=== PATIENT | male | born 1955 | race Caucasian/White ===

== ENCOUNTER 2022-06-19 10:43 | Emergency (ER) | payer OTHER ==
[2022-06-19 11:29] LABS: BUN/CREATININE RATIO 21 (0-10)
[2022-06-19 11:34] LABS: HEMOGLOBIN 13.6 gm/dl (14.0-17.5); RED BLOOD COUNT 4.61 M/UL (4.20-5.50); WHITE BLOOD COUNT 6.5 K/UL (4.5-11.0)
== END 2022-06-19 15:05 | disposition home or self-care (01) ==
LOC: ER1 10:43
PROVIDERS: Student in an Organized Health Care Education/Training Program
DX: S20.219A Contusion of unspecified front wall of thorax, initial encounter (principal); M25.561 Pain in right knee; M54.2 Cervicalgia; M54.50 Low back pain, unspecified; M79.651 Pain in right thigh; E11.9 Type 2 diabetes mellitus without complications; I11.9 Hypertensive heart disease without heart failure; V89.2XXA Person injured in unspecified motor-vehicle accident, traffic, initial encounter; Y92.410 Unspecified street and highway as the place of occurrence of the external cause
CPT/HCPCS: 70450; 71045; 71260; 72125; 73502; 73552; 73564; 80053; 82550; 82553; 84484; 85025; 93005; 99284; Q9967